=== PATIENT | male | born 1950 | race American Indian/Alaskan Native ===

== ENCOUNTER 2020-03-31 12:11 | Outpatient (CLI) | payer MEDICARE ==
[2020-03-31 13:16] LABS: Bilirubin,Urine NEG (Negative); Blood,Urine NEG (Negative); Color,Urine Yellow (Yellow); Protein,Urine <15 mg/dL mg/dL (Negative); Urobilinogen,Urine < 2.0 mg/dL (<2.0); WBC,Urine < 1.0 /HPF (0.0-6.0)
[2020-03-31 13:17] LABS: Alanine Aminotransferase 30 units/L (7-56); Albumin 4.2 g/dL (3.9-5); BUN/Creatinine Ratio 8; Blood Urea Nitrogen 11 mg/dL (9-20); Calcium 9.5 mg/dL (8.4-10.2); Hemolysis Index 16
== END 2020-03-31 12:12 | disposition home or self-care (01) ==
LOC: LAB 12:11
DX: I10 Essential (primary) hypertension (principal); R73.03 Prediabetes; B19.20 Unspecified viral hepatitis C without hepatic coma; R30.0 Dysuria
CPT/HCPCS: 36415; 80053; 81001; 83036; 87517

== ENCOUNTER 2021-08-02 17:38 | Emergency (ER) | payer MEDICARE ==
[2021-08-02] MEDS ORDERED: MAGNESIUM SULFATE 2 GM/50 ML BAG IV ONE (18:18)
[2021-08-02] MEDS ORDERED: LORazepam 2 MG/ML VIAL IV ONE (18:18)
--- NOTE | 2021-08-02 18:24 | Emergency Department Report ---
HPI - General Chief Complaint: Medical Clearance Time Seen by Provider: 08/02/21 18:08 - HPI HPI: Room 5 The patient is a 71-year-old male sent from [facility] for medical clearance for alcohol detox. Patient arrived to [facility] today voluntarily for alcohol detox and was subsequently sent to the ED for medical clearance. Patient states his only complaint is having shakes from alcohol withdrawal which began approximate 2 hours ago. Patient states his last alcohol consumption occurred approximately 3 hours ago. Patient denies having any other complaints including chest pain or shortness of breath ED Past Medical Hx - Past Medical History Hx Pulmonary Embolism: Yes (? Started on Eliquis) Hx of Cancer: Yes (Prostate CA s/p xrt) - Surgical History Additional Surgical History: Prostate surgery - Family History Family history: no significant - Social History Smoking Status: Current Every Day Smoker (1/2 pack/day) Substance Use Type: None (Denies illicit drug use), Alcohol (3 pints of alcohol daily last consumed 3 hours ago) ED Review of Systems ROS: Stated complaint: MEDICAL CLEARANCE Other details as noted in HPI Constitutional: no symptoms reported Eyes: denies: eye pain ENT: denies: throat pain Respiratory: denies: shortness of breath Cardiovascular: denies: chest pain Endocrine: no symptoms reported Gastrointestinal: denies: abdominal pain Genitourinary: denies: dysuria Musculoskeletal: denies: back pain Neurological: denies: headache Physical Exam - Physical Exam Vital Signs: Vital Signs 08/02/21 17:49 Temperature 97.4 F L Pulse Rate 79 Respiratory 18 Rate Blood Pressure 141/95 [Left] O2 Sat by Pulse 98 Oximetry Physical Exam: GENERAL: The patient is well-developed well-nourished male lying on stretcher not appearing to be in acute distress. [] HEENT: Normocephalic. Atraumatic. Extraocular motions are intact. Patient has moist mucous membranes. NECK: Supple. Trachea midline CHEST/LUNGS: Clear to auscultation. There is no respiratory distress noted. HEART/CARDIOVASCULAR: Regular. There is no tachycardia. There is no gallop rub or murmur. ABDOMEN: Abdomen is soft, nontender. Patient has normal bowel sounds. There is no abdominal distention. SKIN: There is no rash. There is no edema. There is no diaphoresis. NEURO: The patient is awake, alert, and oriented. The patient is cooperative. The patient has no focal neurologic deficits. The patient has normal speech. Cranial nerves II through XII grossly intact. Mild tremulousness noted MUSCULOSKELETAL: There is no evidence of acute injury. RECTAL: Guaiac negative, light brown stool ED Course Vital Signs 08/02/21 17:49 Temperature 97.4 F L Pulse Rate 79 Respiratory 18 Rate Blood Pressure 141/95 [Left] O2 Sat by Pulse 98 Oximetry - Consultations Consultation #1: 08/03/21 d/w dynamics ax consultant Snow- Pt can be sent directly to [facility] ED Medical Decision Making - Lab Data Result diagrams: 08/02/21 18:28 08/02/21 18:28 Laboratory Tests 08/02/21 08/02/21 08/02/21 18:28 18:28 18:28 WBC 3.7 L RBC 3.94 Hgb 13.1 Hct 38.4 MCV 97 H MCH 33 H MCHC 34 RDW 15.7 H Plt Count 106 L Lymph % (Auto) 33.0 Ross % (Auto) 11.8 H Eos % (Auto) 0.8 Baso % (Auto) 0.7 Lymph # (Auto) 1.2 Ross # (Auto) 0.4 Eos # (Auto) 0.0 Baso # (Auto) 0.0 Seg Neutrophils % 53.7 Seg Neutrophils # 2.0 PT 13.4 INR 0.92 APTT 24.7 Sodium 139 Potassium 3.9 Chloride 94.7 L Carbon Dioxide 22 Anion Gap 26 BUN 12 Creatinine 0.8 Estimated GFR > 60 BUN/Creatinine Ratio 15 Glucose 65 L Calcium 9.3 Total Bilirubin 0.90 AST 173 H ALT 67 H Alkaline Phosphatase 69 Total Protein 7.1 Albumin 4.2 Albumin/Globulin Ratio 1.4 Urine Color Urine Turbidity Urine pH Ur Specific [place] Urine Protein Urine Glucose (UA) Urine Ketones Urine Blood Urine Nitrite Urine Bilirubin Urine Urobilinogen Ur Leukocyte Esterase Urine WBC (Auto) Urine RBC (Auto) Urine Opiates Screen Urine Methadone Screen Ur Barbiturates Screen Ur Phencyclidine Scrn Ur Amphetamines Screen U Benzodiazepines Scrn Urine Cocaine Screen U Marijuana (THC) Screen Plasma/Serum Alcohol Blood Type Antibody Screen 08/02/21 08/02/21 08/02/21 18:28 18:28 21:46 WBC RBC Hgb Hct MCV MCH MCHC RDW Plt Count Lymph % (Auto) Ross % (Auto) Eos % (Auto) Baso % (Auto) Lymph # (Auto) Ross # (Auto) Eos # (Auto) Baso # (Auto) Seg Neutrophils % Seg Neutrophils # PT INR APTT Sodium Potassium Chloride Carbon Dioxide Anion Gap BUN Creatinine Estimated GFR BUN/Creatinine Ratio Glucose Calcium Total Bilirubin AST ALT Alkaline Phosphatase Total Protein Albumin Albumin/Globulin Ratio Urine Color Dark yellow Urine Turbidity Clear Urine pH 6.0 Ur Specific [place] 1.030 Urine Protein <30 mg dl Urine Glucose (UA) Negative Urine Ketones Trace Urine Blood Negative Urine Nitrite Negative Urine Bilirubin Negative Urine Urobilinogen < 2.0 Ur Leukocyte Esterase Negative Urine WBC (Auto) < 1.0 Urine RBC (Auto) < 1.0 Urine Opiates Screen Urine Methadone Screen Ur Barbiturates Screen Ur Phencyclidine Scrn Ur Amphetamines Screen U Benzodiazepines Scrn Urine Cocaine Screen U Marijuana (THC) Screen Plasma/Serum Alcohol 0.13 H Blood Type A POSITIVE Antibody Screen Negative 08/02/21 21:46 WBC RBC Hgb Hct MCV MCH MCHC RDW Plt Count Lymph % (Auto) Ross % (Auto) Eos % (Auto) Baso % (Auto) Lymph # (Auto) Ross # (Auto) Eos # (Auto) Baso # (Auto) Seg Neutrophils % Seg Neutrophils # PT INR APTT Sodium Potassium Chloride Carbon Dioxide Anion Gap BUN Creatinine Estimated GFR BUN/Creatinine Ratio Glucose Calcium Total Bilirubin AST ALT Alkaline Phosphatase Total Protein Albumin Albumin/Globulin Ratio Urine Color Urine Turbidity Urine pH Ur Specific [place] Urine Protein Urine Glucose (UA) Urine Ketones Urine Blood Urine Nitrite Urine Bilirubin Urine Urobilinogen Ur Leukocyte Esterase Urine WBC (Auto) Urine RBC (Auto) Urine Opiates Screen Presumptive negative Urine Methadone Screen Presumptive negative Ur Barbiturates Screen Presumptive negative Ur Phencyclidine Scrn Presumptive negative Ur Amphetamines Screen Presumptive negative U Benzodiazepines Scrn Presumptive negative Urine Cocaine Screen Presumptive negative U Marijuana (THC) Screen Presumptive positive Plasma/Serum Alcohol Blood Type Antibody Screen - Differential Diagnosis Alcoholism Critical care attestation.: If time is entered above; I have spent that time in minutes in the direct care of this critically ill patient, excluding procedure time. ED Disposition Clinical Impression: Medical clearance for psychiatric admission, Alcoholism Disposition: [address] [place] [address] Is pt being admited?: No Does the pt Need Aspirin: No Condition: Stable Instructions: Alcohol Abuse and Dependence Information, Adult Time of Disposition: 00:03 (xfer to [facility])
[2021-08-02 18:59] LABS: Basophils % (Auto) 0.7 % (0.0-1.8); Eosinophils % (Auto) 0.8 % (0.0-4.3); Hematocrit 38.4 % (35.5-45.6); Hemoglobin 13.1 gm/dl (11.8-15.2); Lymphocytes # (Auto) 1.2 K/mm3 (1.2-5.4); Mean Corpuscular HGB Conc 34 % (32-34); Mean Corpuscular Volume 97 fl (84-94); Monocytes # (Auto) 0.4 K/mm3 (0.0-0.8); Monocytes % (Auto) 11.8 % (0.0-7.3); Platelet Count 106 K/mm3 (140-440); Red Blood Count 3.94 M/mm3 (3.65-5.03); Red Cell Distribution Width 15.7 % (13.2-15.2)
[2021-08-02] MEDS ORDERED: THIAMINE 100 MG, FOLIC ACID 1 MG, MULTIPLE VITAMIN INJ, ADULT 10 ML in SODIUM CHLORIDE ... IV ONE (19:00)
[2021-08-02 19:08] LABS: Alanine Aminotransferase 67 units/L (7-56); Albumin 4.2 g/dL (3.9-5); BUN/Creatinine Ratio 15; Blood Urea Nitrogen 12 mg/dL (9-20); Calcium 9.3 mg/dL (8.4-10.2); Hemolysis Index 3
[2021-08-02 19:12] LABS: INR 0.92 (0.87-1.13)
[2021-08-02 19:13] LABS: Partial Thromboplastin Time 24.7 Sec. (24.2-36.6)
[2021-08-02 23:18] LABS: Amphetamine Screen,Urine PRESUMPTIVE NEGATIVE; Benzodiazepines Screen,Urine PRESUMPTIVE NEGATIVE; Cannabinoid Screen,Urine PRESUMPTIVE POSITIVE; Cocaine Screen,Urine PRESUMPTIVE NEGATIVE; Methadone Screen,Urine PRESUMPTIVE NEGATIVE; Opiate Screen,Urine PRESUMPTIVE NEGATIVE
[2021-08-02 23:59] LABS: Bilirubin,Urine Negative (Negative); Color,Urine Dark Yellow (Yellow)
[2021-08-03] LABS: Blood,Urine Negative (Negative); Protein,Urine <30 mg dL mg/dL (Negative); RBC,Urine < 1.0 /HPF (0.0-6.0); Urobilinogen,Urine < 2.0 mg/dL (<2.0); WBC,Urine < 1.0 /HPF (0.0-6.0)
[2021-08-03 05:18] VITALS: BP 130/77
== END 2021-08-03 05:18 ==
LOC: ED 17:38
DX: F10.20 Alcohol dependence, uncomplicated (principal); Z13.30 Encounter for screening examination for mental health and behavioral disorders, unspecified
CPT/HCPCS: 36415; 80053; 80307; 81001; 82270; 85025; 85610; 85730; 86850; 86900; 86901; 96365; 96366; 96367; 96375; 99284; J2060; J3411; J3475; J3490; J7030; 80320; G0480